=== PATIENT | male | born 1950 | race Caucasian/White ===

== ENCOUNTER 2021-04-22 13:05 | Outpatient (CLI) | payer MEDICARE, SELFPAY ==
--- NOTE | 2021-04-22 13:15 | ECG_ITS ---
Measurements Intervals [place] Rate: 62 P: 39 IA: 240 QRS: -37 QRSD: 104 T: 0 QT: 394 QTc: 400 Interpretive Statements SINUS RHYTHM WITH FIRST DEGREE AV BLOCK MARKED LEFT AXIS DEVIATION [QRS AXIS < -30] PATTERN CONSISTENT WITH PULMONARY DISEASE INCOMPLETE RIGHT BUNDLE BRANCH BLOCK [90+ ms QRS DURATION, TERMINAL R IN V1/V2, 40+ ms S IN I/aVL/V4/V5/V6] NO PREVIOUS ECG AVAILABLE FOR COMPARISON Electronically Signed On 04-22-2021 18:38:56 CDT by Anjelica Vázquez M.D.
[2021-04-22 14:23] LABS: Anion Gap 4 mmol/L (8-16); Blood Urea Nitrogen 17 mg/dL (9-20); Calcium 8.7 mg/dL (8.4-10.2); Carbon Dioxide 29 mmol/L (22-30); Chloride 101 mmol/L (98-107); Estimated Glomerular Filt Rate > 60; Glucose 206 mg/dL (65-110); Potassium 4.1 mmol/L (3.4-5.0); Sodium 134 mmol/L (137-145)
== END 2021-04-22 13:06 | disposition home or self-care (01) ==
PROVIDERS: Anesthesiology; PCP Internal Medicine; Visit Provider Otolaryngology
DX: Z01.818 Encounter for other preprocedural examination (principal); E78.5 Hyperlipidemia, unspecified; E11.9 Type 2 diabetes mellitus without complications; R94.31 Abnormal electrocardiogram [ECG] [EKG]; I45.19 Other right bundle-branch block
CPT/HCPCS: 36415; 80048; 93005

== ENCOUNTER 2021-04-25 00:23 | Day surgery (SDC) | payer MEDICARE, SELFPAY ==
[2021-04-18 12:46] VITALS: BMI 25.7
--- NOTE | 2021-04-18 12:51 | PC.NURSE ---
Report to the Outpatient Waiting Room, entrance under the green pavilion located off [facility], at time _0745 on date ___04/25/21____. OR Time: . - You and your visitor will be asked a series of questions to screen for COVID 19 for your protection. - A mask is required within the hospital. Preoperative COVID Testing Requirements: No COVID Test needed if: (proof is required; if not received patient will have Rapid Test prior to entry) - Patient has received COVID Vaccine at least 14 days prior to procedure date or - Patient has positive COVID test result within last 90 days of surgery date. COVID Test needed if above criteria is not met If not COVID vaccinated a COVID test must be conducted within 72 hours of surgery and patient is asked to isolate self from time of testing until procedure. You will go to the [facility] for your COVID testing. The [facility] site is located at the corner of [address] [facility]. You will only be called if COVID results are positive and your surgeon may reschedule your elective surgery date. Patients may have clear liquids (water, carbonated beverages, clear teas, apple juice) until 3 hours prior to surgery with a maximum of 20 ounces. - No food from midnight until time of surgery - Infants may have breast milk until 4 hours before surgery, formula 6 hours prior to surgery. - Children will be allowed to drink immediately following surgery. If applicable, please bring a bottle or sippy cup to assist with drinking. Juice, water, soda, and popsicles are readily available. For infants on formula, please bring formula the day of surgery. Pacifiers are allowed. Take the following medications with a SIP of water the morning of surgery: ____NONE Medications to discontinue per physician ____ALL VITAMINS AND SUPPLEMENTS 3 DAYS PRE OP Date to take last dose___04/21/21 Please no make-up, nail german, hairspray, perfume, deodorant, or body powder the day of surgery. No jewelry (including any body piercings) or valuables the day of surgery, leave them at home. Please take a shower or bath the night before, or the morning of, surgery with an antibacterial soap. Wear comfortable, loose fitting clothing. Children are encouraged to wear pajamas. - Jewelry must be removed prior to entering the operating room. Rings and piercings that are not removed may be cut off. - The hospital will not accept responsibility for valuables. - Please leave all valuables, including medications, at home the day of surgery. If you are going home after surgery, a licensed stage driver must drive you home. - NO public transportation without another adult. - We recommend that an adult stay with you for 24 hours following discharge. - We also recommend that you do not drive, make important decision, drink alcoholic beverages, or take any drugs that were not prescribed by your health care provider for at least 24 hours after your discharge time. For Pediatric surgeries, we recommend two adults accompany the child home (only one inside the building at this time). One visitor will be allowed to accompany the patient into the hospital. Patients visitor will be instructed to remain with patient at all times or leave the building. We will allow the visitor to come back to the postoperative area when patient is ready. Follow any additional instructions given to you from your surgeon. Telephone instructions given to PATIENT and asked if any additional questions and then verbalized understanding. Patient advised to call surgeon office or pre surgery nurse liaison [phone] if any additional questions.
--- NOTE | 2021-04-24 07:54 | PM.IMHP ---
H&P: HPI History of Present Illness Date/Time: 04/24/21 07:54 Chief Complaint: Left neck cyst Narrative: patient presents for planned surgical procedure no change in symptoms no change in history Review of Systems Constitutional: Constitutional: Denies fatigue, Denies fever(s) and Denies lethargy Eyes: Eyes: Denies blurry vision and Denies change in vision ENT: Reports as per HPI Cardiovascular: Cardiovascular: Denies chest pain Respiratory: Respiratory: Denies cough Endocrine: Endocrine: Denies fatigue Hematologic/Lymphatic: Hematologic/Lymphatic: Denies easy bleeding, Denies easy bruising and Denies lymphadenopathy Allergic/Immunologic: Allergic/Immunologic: Denies seasonal rhinorrhea [facility] Family History Family History Mother Cerebrovascular accident Father Patient's father is Acute myocardial infarction Social History Social History Smoking status: Never smoker Second hand tobacco smoke exposure: No Alcohol intake: current Drinks per week: 4 Substance use: never Spiritual care concerns: No Meds Home Medications and Allergies Home Medications Medication Instructions Recorded Confirmed Type sildenafil 50 mg tablet 50 mg PO DAILY PRN #12 tablet 02/13/20 04/18/21 Rx metformin 500 mg tablet 500 mg PO BID #180 tablet 11/22/20 04/18/21 Rx atorvastatin 10 mg tablet 10 mg PO DAILY #90 tablet 03/16/21 04/18/21 Rx diazepam 5 mg tablet 5 mg PO DAILY PRN #20 tablet 03/18/21 04/18/21 Rx Lacto.acidophilus-Bif.animalis 1 cap PO DAILY 04/18/21 04/18/21 History [Daily Probiotic] aspirin [Adult Low Dose Aspirin] 81 mg PO DAILY 04/18/21 04/18/21 History atovaquone-proguanil [Malarone] See Rx Instructions PO .COMPLEX PRN 04/18/21 04/18/21 History ciprofloxacin HCl [Ciloxan] 1 drp OPHTHALMIC (EYE) PRN PRN 04/18/21 04/18/21 History coenzyme [id number]-[id number] E [CoQ10 SG 1 cap PO DAILY 04/18/21 04/18/21 History 100] doxycycline hyclate 100 mg PO PRN PRN 04/18/21 04/18/21 History multivitamin,jp-gtxs-evokjpqq 1 tablet PO DAILY 04/18/21 04/18/21 History [Complete Multivitamin] turmeric 400 mg PO DAILY 04/18/21 04/18/21 History zolpidem 5 mg PO .hs PRN 04/18/21 04/18/21 History Allergies Allergy/AdvReac Type Severity Reaction Status Date / Time No Known Allergies Allergy Verified 04/18/21 12:24 Exam Const: General: cooperative, healthy appearing, comfortable, well developed and alert HENMT: Head: normal to inspection, normocephalic and atraumatic Ears: hearing grossly normal bilaterally, external ears normal, TM's normal bilaterally and EAC's normal General nose exam: Normal external nose present, Normal nares present, No nasal polyps present, Normal nasal mucous membranes and turbinates present and Normal septum present Face and sinus: normal facial exam Mouth: Yes Normal oral and palatal mucosa present, Yes lip normal, Yes tongue normal, Yes oropharynx normal and Yes moist mucous membranes Teeth and gingiva: dentition normal and gingiva normal Throat: posterior oropharynx normal, tonsils normal and uvula midline Eyes: General: appearance normal, both eyes and all related structures Periorbital: periorbital findings normal Eyelids: eyelids normal Conjunctivae: conjunctivae normal Sclera: sclerae normal Neck: Neck: not normal to visual inspection ( left neck cyst), full ROM and no lymphadenopathy Thyroid: thyroid normal Lymphatic: no lymphadenopathy noted Resp: Effort & Inspection: normal respiratory effort and able to speak in complete sentences Cardio: Jugular venous distension: no JVD Neuro: Cranial nerves: Yes CN's II-XII intact bilaterally Assessment and Plan Assessment and plan (1) Cyst of neck: Status: Acute Assessment and Plan: plan is for the operating room removal of left neck lesion/ cyst. Soft tissue / plastic straight h
[2021-04-25] VITALS (7 sets, daily range): BP systolic 124–153; BP diastolic 67–76; PULSE 51–58; RESP 12–16; TEMP 36.3; O2SAT 95–98
[2021-04-25] MEDS: LACTATED RINGERS 1,000 ML 30 ML IV CONT (07:15)
[2021-04-25 07:18] LABS: Glucose Point of Care 167 mg/dl (65-105)
--- NOTE | 2021-04-25 07:20 | WPDHPUPDATE1 ---
History and Physical Update Update Date/Time: 04/25/21 07:20 History and Physical has been reviewed, including an updated exam of the patient. There are NO changes in the patient's condition. Risks, benefits, and alternatives have been discussed and questions answered. Patient agrees to proceed with procedure.
--- NOTE | 2021-04-25 07:56 | WPDANESEPPF ---
Anes - Initial Pre Proc Eval Procedure: Operation Date: 04/25/21 08:30 Proposed Procedures p Excision Left Neck Mass - Yves Vazquez MD Date/Time: 04/25/21 07:56 Surgeon: Yves Vazquez MD Pre Op Diagnosis: left neck mass Patient Data Age: 70 Gender: M Height: 1.83 m Weight: 86.2 kg Allergies Allergy/AdvReac Type Severity Reaction Status Date / Time No Known Allergies Allergy Verified 04/25/21 07:30 Home Medications Medication Instructions Recorded Confirmed Type sildenafil 50 mg tablet 50 mg PO DAILY PRN #12 tablet 02/13/20 04/25/21 Rx metformin 500 mg tablet 500 mg PO BID #180 tablet 11/22/20 04/25/21 Rx atorvastatin 10 mg tablet 10 mg PO DAILY #90 tablet 03/16/21 04/25/21 Rx diazepam 5 mg tablet 5 mg PO DAILY PRN #20 tablet 03/18/21 04/25/21 Rx Lacto.acidophilus-Bif.animalis 1 cap PO DAILY 04/18/21 04/25/21 History [Daily Probiotic] aspirin [Adult Low Dose Aspirin] 81 mg PO DAILY 04/18/21 04/25/21 History atovaquone-proguanil [Malarone] See Rx Instructions PO .COMPLEX PRN 04/18/21 04/25/21 History ciprofloxacin HCl [Ciloxan] 1 drp OPHTHALMIC (EYE) PRN PRN 04/18/21 04/25/21 History coenzyme [id number] E [CoQ10 SG 1 cap PO DAILY 04/18/21 04/25/21 History 100] doxycycline hyclate 100 mg PO PRN PRN 04/18/21 04/25/21 History multivitamin,cn-zplc-wkfphxzr 1 tablet PO DAILY 04/18/21 04/25/21 History [Complete Multivitamin] turmeric 400 mg PO DAILY 04/18/21 04/25/21 History zolpidem 5 mg PO .hs PRN 04/18/21 04/25/21 History Laboratory Tests 04/25/21 07:14 POC Capillary Glucose 167 mg/dl H mg/dl (65-105) Patient hx anesthesia problems: none Family hx anesthesia problems: none Results Review: All pre-operative results and documents have been reviewed as part of the pre-operative evaluation. [facility] Family History Family History Mother Cerebrovascular accident Father Patient's father is Acute myocardial infarction Social History Social History Smoking status: Never smoker Second hand tobacco smoke exposure: No Alcohol intake: current Drinks per week: 4 Substance use: never Living arrangements: with family Spiritual care concerns: No Anes - Eval Final PreProcedure Day of Procedure 04/25/21 07:56 Patient weight: overweight Heart: regular rate and rhythm Lungs: clear to auscultation Airway: Mallampati scale class II Neurological: alert and oriented Last oral intake: >/= 8 hours ASA classification: II Emergent: no Anesthetic plan: proceed Anesthesia type and monitoring: general LMA and standard monitoring Results Review: All pre-operative results and documents have been reviewed as part of the pre-operative evaluation. Informed Consent: The patient's anesthetic plan and its attendant risks and benefits were discussed with the patient/family/POA. Questions were solicited and answers provided to the satisfaction of the patient/family/POA.
[2021-04-25] MEDS: ceFAZolin 2 GM/D5W 50 ML 2 GM/50 ML BAG IVPB (08:21)
--- NOTE | 2021-04-25 09:22 | W.PM.PROC2 ---
Procedure Note - Detailed Date of Procedure 04/25/21 Pre-op Diagnosis left neck mass Post-op Diagnosis Same Procedure Performed Excision of left neck mass posterior try approximately 3 cm Surgeon Yves Vazquez MD Anesthesia General (LMA) Indications See above Findings 3 x 2 cm neck mass consistent with lipoma, nerve stimulated, cranial nerve 11 left-sided stimulated via bipolar on subcutaneous tissue,, not on the nerve, following procedure Description of Procedure Patient identified consent verified. Patient brought operating time-out performed. General anesthesia induced LMA secured. Patient prepped and draped for procedure 2nd time-out performed. 4 cm incision drawn over relaxed skin tension line directly over lesion. 1 cc injected under pre drawn surgical incision 1% lidocaine 1 100,000 parts epinephrine. Fifteen blade utilized to cut through the skin and dermis. Dissection carried out with small curved scissors lesion consistent with lipoma any very small bleeders cauterized with bipolar electrocautery at a setting of 5 lesion removed off the fascial tissue. While bipolar ring some dermal tissue not near any nerves cranial nerve 11 on that side stimulated. The wound was then copiously irrigated with sterile normal saline. Three interrupted 4-0 Vicryl sutures were utilized in the deep tissue. The skin was perfectly aligned and skin glue was placed over the incision. Care the patient was turned over to Anesthesiology. There were no immediate complications. Patient taken to PACU. Total blood loss less than 1 cc. Estimated Blood Loss 1 Drains No Packing No Pathology Yes Complications No immediate complications Condition Stable Disposition PACU
[2021-04-25 09:23] LABS: Glucose Point of Care 189 mg/dl (65-105)
== END 2021-04-25 10:20 | disposition home or self-care (01) ==
PROVIDERS: PCP Internal Medicine; Visit Provider Otolaryngology
PROC: (CPT 21552; principal; 2021-04-25 08:30)
DX: R22.1 Localized swelling, mass and lump, neck (principal); D17.0 Benign lipomatous neoplasm of skin and subcutaneous tissue of head, face and neck; Z79.82 Long term (current) use of aspirin; Z79.84 Long term (current) use of oral hypoglycemic drugs
CPT/HCPCS: 21552; 82948; 88304; J0690; J1100; J1940; J2250; J2270; J2405; J2704; J7120

== ENCOUNTER 2022-10-07 08:11 | Outpatient (CLI) | payer MEDICARE, SELFPAY ==
--- NOTE | ~2022-10-07 | NM_ITS ---
EXAMINATION: NM toyin stress w perfusion DATE: 10/07/2022 10:21 INDICATION: Chest pain TECHNIQUE: Rest images were obtained following intravenous administration of 10.6 mCi Tc99m tetrofosm in (Myoview). The patient was infused intravenously with Lexiscan (Regadenoson). Then, 33.9 mCi Tc99m tetrofosmin (Myoview) was administered intravenously, and stress images were obtained in supine posi tion. Data was reconstructed into short axis and horizontal and vertical long axis SPECT images. [place] d SPECT images were also obtained. COMPARISON: None. FINDINGS: Apparent perfusion defect at the mid inferior and if clinically at the apical inferior and apical segments on the post stress imaging which could represent infarct but significantly more sever e and extensive perfusion defect on the rest images extending to the adjacent mid apical inferior and lateral inferior segments and the basilar inferior segment on the rest images suggesting this may be artifact of diaphragmatic attenuation. Prone imaging is no provided. No reversible perfusion defects to suggest ischemia. There is normal left ventricular chamber size, wall motion and ejection fractio n. Left ventricular ejection fraction measures 57%. IMPRESSION: 1. Possible small infarct at the mid inferior, apical inferior and apical segments. There is signific antly more extensive and severe decreased perfusion on the inferior wall on the rest images suggestin g is also be related to diaphragmatic attenuation artifact. No reversible ischemia. 2. Left ventricular ejection fraction measuring 57%. Reviewed, dictated and finalized at location A. IMPRESSION: 1. Possible small infarct at the mid inferior, apical inferior and apical segme nts. There is significantly more extensive and severe decreased perfusion on th e inferior wall on the rest images suggesting is also be related to diaphragmat ic attenuation artifact. No reversible ischemia. 2. Left ventricular ejection fraction measuring 57%.
--- NOTE | 2022-10-07 08:35 | EST_ITS ---
Patient Info Name: Alfonzo Rivera Age: 72 years : 1950 Gender: Male Ht: 71 in Wt: 185 lbs BSA: 2.06 m2 HR: 53 bpm BP: 121 / 83 mmHg Heart Rhythm: Sinus Rhythm Exam Date: 10/07/2022 9:05 AM Exam Location: [facility] Patient Status: Outpatient Admit Date: 10/07/2022 Staff Ordering Physician: Simeon Mccauley DO Attending Provider: Simeon Mccauley DO Exercise Technologist: Judith Barrios CT Exercise Physician: Qasim Barclay DO Exam Type: CA stress toyin w NM Study Info Indications R07.89 - Other chest pain A regadenoson stress test was performed. Summary 1. 1. Negative lexiscan stress test for ischemic ST changes by ECG criteria. 2. 2. Stable hemodynamics throughout the test. 3. 3. Nuclear scan to follow and will be reported separately. Please correlate with it. 4. 4. Patient informed of the above results. Protocol: Lexiscan Stress ECG Details Stage: REST Duration (min): 1 min : 9 sec HR (bpm): 54 SBP (mmHg): 121 DBP (mmHg): 83 Stage: REST Duration (min): 15 min : 13 sec HR (bpm): 53 SBP (mmHg): 121 DBP (mmHg): 83 Stage: STAGE 1 Duration (min): 1 min : 0 sec HR (bpm): 65 SBP (mmHg): 114 DBP (mmHg): 70 Stage: RECOVERY Duration (min): 1 min : 0 sec HR (bpm): 70 SBP (mmHg): 114 DBP (mmHg): 70 Stage: RECOVERY Duration (min): 2 min : 0 sec HR (bpm): 64 SBP (mmHg): 114 DBP (mmHg): 70 Stage: RECOVERY Duration (min): 3 min : 0 sec HR (bpm): 66 SBP (mmHg): 110 DBP (mmHg): 69 Stage: RECOVERY Duration (min): 3 min : 16 sec HR (bpm): 65 SBP (mmHg): 110 DBP (mmHg): 69 Rest HR: 53 bpm Peak HR: 72 bpm Rest Sys BP: 121 mmHg Peak Sys BP: 114 mmHg Max Pred HR: 149 bpm % Max Pred HR: 48 % Target HR: 127 bpm Max RPP: 8,208 bpm*mmHg Termination Reason: Completed protocol Cardiac Symptoms: Shortness of breath Total Time: 1 min : 0 sec Rest Pineda BP: 83 mmHg Peak Pineda BP: 70 mmHg Total Dose: 0.4 mg Resting ECG Sinus rhythm. Stress ECG No ST changes. Arrhythmias None. Report Signatures
== END 2022-10-07 08:12 | disposition home or self-care (01) ==
PROVIDERS: PCP Internal Medicine; Visit Provider Internal Medicine
DX: R07.9 Chest pain, unspecified (principal)
CPT/HCPCS: 78452; 93017; A9502; J2785

== ENCOUNTER 2022-12-24 00:26 | Day surgery (SDC) | payer MEDICARE, SELFPAY ==
[2022-12-10 11:37] VITALS: BMI 25.8
--- NOTE | 2022-12-22 10:30 | SUR.PREOP ---
Patient called regarding upcoming procedure. Reviewed preop instructions, appointment times, and procedure prep.
[2022-12-24 11:53] VITALS: BP 120/53; PULSE 53; RESP 16; TEMP 35.9; O2SAT 100
[2022-12-24] MEDS: LACTATED RINGERS 1,000 ML 150 ML IV CONT (12:05)
[2022-12-24 12:06] LABS: Glucose Point of Care 94 mg/dl (65-105)
--- NOTE | 2022-12-24 12:08 | PM.HPGS ---
History of Present Illness History of Present Illness Consent: Risks, benefits, and alternatives have been discussed and questions answered. Patient agrees to proceed with procedure. Chief complaint: Hx colon polyps Narrative: Alfonzo Rivera is a 72 year old male Presents for screening colonoscopy. Patient has a distant history colon polyps. His current weight appetite bowel movements are normal. Patient denies abdominal pain. He has had no bleeding. Family history noncontributory. Most recent colonoscopy 2018 was unremarkable. Review of Systems Review of Systems: Review of systems noncontributory. [facility] Family History Family History Mother Cerebrovascular accident Father Patient's father is Acute myocardial infarction Social History Social History Smoking status: Former smoker Tobacco type: cigarettes Second hand tobacco smoke exposure: No Alcohol intake: current Drinks per week: 4 Substance use: never Substance use type: does not use Lack of Transportation: No Lack of Food: Never True Current Housing: I Have Housing Concerned About Future Housing: No Difficulty Paying Gas/Electric Bills: No Difficulty Paying for Meds: No Currently Unemployed: No Education: Bachelor's Degree Difficulty w/ Childcare or Family Care: No Living arrangements: with family Spiritual care concerns: No Meds Home Medications and Allergies Home Medications Medication Instructions Recorded Confirmed Type Lactobacillus 1 cap PO DAILY 04/18/21 12/24/22 History acidophilus-Bifidobac.animalis 2.5 billion cell capsule (Daily Probiotic) aspirin 81 mg tablet 81 mg PO DAILY 04/18/21 12/24/22 History coenzyme K09-lyzkydm E 100 mg-100 1 cap PO DAILY 04/18/21 12/24/22 History unit capsule multivitamin,pp-mbvq-xqtmricb 1 tablet PO DAILY 04/18/21 12/24/22 History turmeric 400 mg capsule 400 mg PO DAILY 04/18/21 12/24/22 History sildenafil 50 mg tablet 50 mg PO DAILY PRN sexual activity 08/26/21 12/24/22 Rx #12 tabs doxycycline hyclate 100 mg capsule 100 mg PO PRN PRN INFECTION #15 03/17/22 12/24/22 Rx caps zolpidem 5 mg tablet 5 mg PO .hs PRN INSONMIA #30 tabs 08/31/22 12/24/22 Rx diazepam 5 mg tablet 5 mg PO DAILY PRN anxiety #20 tabs 09/17/22 12/24/22 Rx metformin 500 mg tablet 500 mg PO BID #180 tabs 11/12/22 12/24/22 Rx atovaquone 250 mg-proguanil 100 mg See Rx Instructions PO .COMPLEX 11/15/22 12/24/22 Rx tablet (Malarone) PRN INFECTION #18 tabs atorvastatin 10 mg tablet 10 mg PO DAILY #90 tabs 12/06/22 12/24/22 Rx Allergies Allergy/AdvReac Type Severity Reaction Status Date / Time No Known Allergies Allergy Verified 12/24/22 11:50 Vital Signs Vital Signs - 24 hr 12/24/22 11:53 Temperature 96.7 F L Pulse Rate 53 L Respiratory Rate 16 Blood Pressure 120/53 L Pulse Oximetry 100 Oxygen Delivery Room Air Exam Narrative: Physical exam reveals patient to be alert. Vital signs stable. HEENT exam is unremarkable. Patient is anicteric. Lungs are clear to auscultation and percussion. Heart is without murmur or extra sounds. Abdomen bowel sounds are present soft nontender with no organomegaly. Digital external rectal exam is normal. Assessment and Plan Assessment and plan (1) Encounter for screening colonoscopy: Code(s): Z12.11 - Encounter for screening for malignant neoplasm of colon Status: Acute Assessment and Plan: Patient presents today for screening colonoscopy. He has a very distant history of colon polyps. Further recommendations will be given after endoscopy.
[2022-12-24 12:33] VITALS: BP 86/47; PULSE 56; RESP 14; O2SAT 96
[2022-12-24 12:43] VITALS: BP 122/57; PULSE 58; RESP 18; O2SAT 99
[2022-12-24 12:53] VITALS: BP 115/52; PULSE 61; RESP 19; O2SAT 100
== END 2022-12-24 13:06 | disposition home or self-care (01) ==
PROVIDERS: PCP Internal Medicine; Visit Provider Internal Medicine Gastroenterology
PROC: 0DJD8ZZ Inspection of Lower Intestinal Tract, Via Natural or Artificial Opening Endoscopic (ICD-10-PCS; CPT 45378; principal; 2022-12-24 13:00)
DX: Z12.11 Encounter for screening for malignant neoplasm of colon (principal); K63.5 Polyp of colon; K64.8 Other hemorrhoids; K57.30 Diverticulosis of large intestine without perforation or abscess without bleeding; Z87.891 Personal history of nicotine dependence; F10.90 Alcohol use, unspecified, uncomplicated; Z79.82 Long term (current) use of aspirin; Z79.84 Long term (current) use of oral hypoglycemic drugs; Z79.899 Other long term (current) drug therapy
CPT/HCPCS: 45385; 82948; 88305; J2704; J7120

== ENCOUNTER 2024-08-16 21:14 | Emergency (ER) | payer MEDICARE, SELFPAY ==
--- NOTE | ~2024-08-16 | XR_ITS ---
XR chest 2V Ordering provider: Amparo Marshall MD History: 74 years Male with . cp WITH PALPATATIONS AND LEFT JAW PAIN . Comparison: None. FINDINGS: MEDIASTINUM: The cardiac silhouette is not enlarged. LUNGS: No infiltrates, effusions or pneumothorax. OTHER: No free air under the diaphragm. IMPRESSION: No acute cardiopulmonary pathology. Reviewed, dictated and finalized at location A.
--- OUTSIDE RECORDS SUMMARY | 2024-08-16 21:16 | XMS_ITS | Clinical Summary ---
Author Organization [facility] Address [address] [place] [address] Care Team Providers Care Prepress Stripper Name Role Phone Unavailable Primary Care Provider Unavailabl e Allergies No known active allergies Medications atorvastatin (LIPITOR) 10 mg tablet TAKE 1 TABLET BY MOUTH ONCE DAILY 08/10/2020 Active metFORMIN (GLUCOPHAGE) 500 mg tablet Take 500 mg by mouth 2 times daily with meals. Active Active Problems No known active problems Social History Tobacco Use Types Packs/Day Years Used Date Smoking Tobacco: Never Smokeless Tobacco: Never Sex and Gender Information Value Date Recorded Sex Assigned at Not on file Legal Sex Male 11:31 AM CDT Gender Identity Not on file Sexual Orientation Not on file Last Filed Vital Signs Vital Sign Reading Time Taken Comments Blood Pressure - - Pulse - - Temperature - - Respiratory Rate - - Oxygen Saturation - - Inhaled Oxygen Concentration - - Weight 86.2 kg (190 lb) 11/13/2020 3:06 PM CDT Height 182.9 cm (6') 11/13/2020 3:06 PM CDT Body Mass Index 25.77 11/13/2020 3:06 PM CDT Plan of Treatment Health Maintenance Due Date Last Done Comments DTAP/TDAP/TD VACCINES (1 - Tdap) 07/13/1970 COLORECTAL SCREENING 07/13/1996 Colorectal Cancer Screening 07/13/1996 FIT-DNA Q 3 years 07/13/1996 FIT/FOBT Q 1 year 07/13/1996 Flex Sig/CT Colonography Q 5 years 07/13/1996 PNEUMOCOCCAL VACCINE 50+ YEA RS (1 of 1 - PCV) 07/13/2001 ZOSTER VACCINE (1 of 2) 07/13/2001 INFLUENZA VACCINE (#1) 2024 11/11/2020, 2018 RSV VACCINE (60+ or ) (1 - 1-dose 75+ series) 07/13/2026 Insurance MEDICARE
--- OUTSIDE RECORDS SUMMARY | 2024-08-16 21:16 | XMS_ITS | Continuity of Care Document ---
Author Organization [facility] Address [address] [place] [address] [address] [place] [address] Phone Care Team Providers Care Wet Roller Name Role Phone Smith OD, Alberto Unavailable Unavailable Procedures Procedure Date Office/outpatient Visit, Est Office/outpatient Visit, New Advance Directives Directive Yes / No Effective Date File Name No Information Encounters Encounter Description Practice Location Reason(s) For Visit Diagnoses Date Provider Providers Copied on Encounter Office/outpat ient Visit, [facility], [address] [place] [address] [address], [place], [place], [id number], [place] tel:[phone] [facility] No Information 2-201 0 Smith OD Alberto. [address] , [address], [place], [place], [facility], [place]. tel:[phone] Office/outpat ient Visit, [facility], [address] [place] [address] [address], [place], [place], [id number], [place] tel:[phone] [facility] No Information 5-201 0 Smith OD Alberto. [address] , [address], [place], [address], [place]. tel:[phone] Referring Provider: Simeon Mccauley MD, [address] [place] [address] [address], [place], [address]. tel:[phone] Family History Family Member Type Diagnosis Age At Onset No Information Payers Payer name Insurance type Covered alliance party ID Authoriza tion(s) No Information Social History Type Description Quantity Date Captured Comments Sex Male Smoking Status No Information Chief Complaint And Reason For Visit No Information Reason For Referral Reason For Referral No Information History Of Present Illness Encounter Date Complaint History Of Prese nt Illness No Information Functional Status Date Functional Assessmen t No Information Instructions Date Instruction Additional Infor mation No Information Assessments Type Assessment Date No Information Patient Care Teams Name Effective Dates (start - stop) Status Members No Information
--- OUTSIDE RECORDS SUMMARY | 2024-08-16 21:16 | XMS_ITS | Clinical Summary ---
Author Organization [facility] Address [address] [facility] [place] [address] Care Team Providers Care Administrative Fellow Name Role Phone Garrick Simeon Morley DO Primary Care Provider [phone] Source Comments [facility],non-owned Affiliates and Associated Physician Practices is amultiple site organization consisting of ambulatory clinics and hospital sitesin [place], [place], [place] and [place]. This disclosure is being madepursuant to the Care Everywhere program and may not contain all information available regarding this patient. Last updated 17.[facility] Immunizations Immunization Administration Dates Next Due INFLUENZA VACCINE, ADJUVANTE D, QUADR. (FLUAD QUADRIVALENT; 65Y+) (AIIV4) 11/11/2020 INFLUENZA VACCINE, QUADR. 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 Gender Identity Not on file Sexual Orientation Not on file Plan of Treatment Health Maintenance Due Date Last Done Comments COLOGUARD (AGES 45-75) - COL ON CA SCREENING 1950 COLON MONITORING 1951 COLONOSCOPY - COLON CA SCREENING 1951 CT COLONOGRAPHY - COLON CA SCREENING 1950 Colorectal Cancer Screening 1950 FIT - COLON CA SCREENING 1951 FLEX SIG - COLON CA SCREENING 1951 LIPID TESTING 1950 MEDICARE AWV 12 MONTHS 1950 HEPATITIS C SCREENING 07/09/1969 DTAP/TDAP/TD VACCINES (1 - Tdap) 07/13/1970 PNEUMOCOCCAL VACCINE 50+ (1 of 1 - PCV) 07/13/2001 ZOSTER VACCINE (1 of 2) 07/13/2001 COVID-19 VACCINE (2 - 2023-2 5 season) 2023 04/16/2020 DEPRESSION SCREENING 02/09/2024 INFLUENZA VACCINE (#1) 2024 , 12/29/2019, 01/04/2019 Respiratory Syncytial Virus (RSV) Vaccine Pt: or over 60 yrs (1 - 1-dose 75+ series) 07/13/2026 HEPATITIS B VACCINE Aged Out No longe r eligible based on patient's age to complete this topic HIB VACCINE Aged Out No longer eligi ble based on patient's age to complete this topic HPV VACCINE Aged Out No longer eligi ble based on patient's age to complete this topic MENINGOCOCCAL (Group B) VACCINE SHARED DECISION-MAKING Aged Out No longer eligible based on patient's age to complete this topic MENINGOCOCCAL GROUPS A/C/Y/W VACCINE Aged Out No longer eligible b ased on patient's age to complete this topic Insurance MEDICARE MEDICARE MEDICARE MEDICARE Care Teams Administrative Fellow Relationship Specialty Start Date End Date Simeon Mccauley DO [address] [facility] [address] [place], [place] [id number] PCP - General Internal Medicine 11/11/20
--- OUTSIDE RECORDS SUMMARY | 2024-08-16 21:16 | XMS_ITS | Referral Summary ---
Author Organization [facility] [address] Address [address] [place] [address] Care Team Providers Care Tenterer Name Role Phone Veto Shields Primary Care Provider Allergies No known active allergies Medications atorvastatin (LIPITOR) 10 mg tablet Take 1 tablet (10 mg total) by mouth daily Active metFORMIN (GLUCOPHAGE) 500 mg tablet Take 1 tablet (500 mg total) by mouth 2 (two) times a day Active aspirin 81 mg enteric coated tablet Take 1 tablet (81 mg total) by mouth daily Active Active Problems Problem Noted Date Diagnosed Date Coronary artery calcification 12/07/2022 Hyperlipidemia associated with type 2 diabetes belén gotti 10/19/2022 Resolved Problems Problem Noted Date Diagnosed Date Resolved Date Abnormal stress ECG 10/19/2022 12/13/19 24 Social History Tobacco Use Types Packs/Day Years Used Date Smoking Tobacco: Never Smokeless Tobacco: Never Personal Safety Answer Date Recorded Have you ever been in or are you currently in a harmful physical or emotional relationship or is someone making you feel afraid or unsafe? Denies 11/13/2022 Sex and Gender Information Value Date Recorded Sex Assigned at Not on file Legal Sex Male 8:31 PM MINUTE CLERK Gender Identity Not on file Sexual Orientation Not on file Last Filed Vital Signs Vital Sign Reading Time Taken Comments Blood Pressure 96/58 12/13/2023 12:54 PM MINUTE CLERK Pulse 68 12/13/2023 12:54 PM MINUTE CLERK Temperature - - Respiratory Rate 10 11/13/2022 8:35 AM CDT Oxygen Saturation 99% 12/13/2023 12:54 PM MINUTE CLERK Inhaled Oxygen Concentration - - Weight 81.8 kg (180 lb 6.4 oz) 12/13/2023 12:54 PM MINUTE CLERK Height 180.3 cm (5' 11) 12/13/2023 12:54 PM MINUTE CLERK Body Mass Index 25.16 12/13/2023 12:54 PM MINUTE CLERK Plan of Treatment Not on file Procedures Procedure Name Priority Date/Time Associated Diagnosis Comments POCT LIPID PANEL Routine 12/13/2023 3:21 PM MINUTE CLERK Hyperlipidemia associated with type 2 diabetes mellitus (HCC) from Last 3 Months or Most Recently Relevant to Health Maintenance Results * POCT lipid panel (12/13/2023 3:21 PM MINUTE CLERK) Cholesterol, POC 153 mg/dL Comment:GLU = 104 HDL, POC 29 mg/dL Triglycerides, POC 185 mg/dL LDL Cholesterol POC 87 mg/dL Chol/HDL Ratio, POC 3.0 Non-HDL Cholesterol, POC 124 mg/dL Cholesterol Total, POC 153 mg/dL Capillary blood 12/13/2023 3 :21 PM MINUTE CLERK us Vik Ochoa MD POINT OF CARE TEST O RDERABLES Final Result from Last 3 Months or Most Recently Relevant to Health Maintenance Insurance MEDICARE [facility] MEDICARE [facility]IC[facility] Care Teams Tenterer Relationship Specialty Start Date End Date Veto Shields DO [address] [facility] [address] [place], [place] [id number] PCP - General Internal Medicine 12/13/23
--- OUTSIDE RECORDS SUMMARY | 2024-08-16 21:16 | XMS_ITS | Clinical Summary ---
Author Organization [facility] [address] Address [address] [place] [address] Care Team Providers Care Dimensional Engineer Name Role Phone Veto Shields DO Primary Care Provider [phone] Allergies No known active allergies Medications atorvastatin [...] 12/07/2022 Hyperlipidemia associated with type 2 diabetes m ellitus 10/19/2022 Resolved Problems Problem Noted Date Diagnosed Date Resolved Date Abnormal stress ECG 10/19/2022 12/13/19 24 Medical History Medical History Date Comments Diabetes mellitus (HCC) Hyperlipidemia Family History Medical History Relation Name Comments Hyperlipidemia Brother Heart attack Father Hyperlipidemia Father Hyperlipidemia Mother Stroke Mother Hyperlipidemia Sister Relation Name Status Comments Brother Father Mother Sister Social History Tobacco Use Types Packs/Day Years [...] on file Legal Sex Male 8: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 CONSULTANT Gender Identity Not on file Sexual Orientation Not on file Obstetrics History Last Filed Vital Signs Vital Sign Reading Time Taken Comments Blood Pressure 96/58 12/13/2023 12:54 PM BIOMETRICS CONSULTANT Pulse 68 12/13/2023 12:54 PM BIOMETRICS CONSULTANT Temperature - - Respiratory Rate 10 11/13/2022 8:35 AM CDT Oxygen Saturation 99% 12/13/2023 12:54 PM BIOMETRICS CONSULTANT Inhaled Oxygen Concentration - - Weight 81.8 kg (180 lb 6.4 oz) 12/13/2023 12:54 PM BIOMETRICS CONSULTANT Height 180.3 cm (5' 11) 12/13/2023 12:54 PM BIOMETRICS CONSULTANT Body Mass Index 25.16 12/13/2023 12:54 PM BIOMETRICS CONSULTANT Plan of Treatment Health Maintenance Due Date Last Done Comments Albumin Creatinine Ratio, Urine 1951 Colon Cancer Screening-Colonoscopy 1951 Depression Screening 1950 Hemoglobin A1C 1951 Hepatitis C Screening 1950 eGFR 1950 Dilated Eye Exam 1951 Foot Exam 1950 Hepatitis B Screening 07/13/1969 Pneumococcal vaccine 65+ (1 of 2 - PCV) 07/13/1970 DTaP/Tdap/Td Vaccine (1 - Tdap) 01/21/2005 5 Well Visit 65+ 07/13/2016 Covid-19 Vaccine (2 - 2023-2 5 season) 2023 04/16/2020 Fall Risk Assessment 11/14/2023 11/13/2022 Influenza Vaccine (Season Ended) 2024 11/24/2021, 11/11/2020, 12/29/2019, Additional history exists Lipid Panel 12/12/2024 12/13/2023, 10/19/2022 Zoster Vaccine Completed 05/21/2021, 12/26/2020 Procedures Procedure Name Priority Date/Time Associated Diagnosis Comments POCT LIPID PANEL Routine 12/13/2023 3:21 PM BIOMETRICS CONSULTANT Hyperlipidemia associated with type 2 diabetes mellitus (HCC) from Last 3 Months or Most Recently Relevant to Health Maintenance Results * POCT lipid panel (12/13/2023 3:21 PM BIOMETRICS CONSULTANT) Cholesterol, POC 153 mg/dL Comment:GLU = 104 HDL, POC 29 mg/dL Triglycerides, POC 185 mg/dL LDL Cholesterol POC 87 mg/dL Chol/HDL Ratio, POC 3.0 Non-HDL Cholesterol, POC 124 mg/dL Cholesterol Total, POC 153 mg/dL Capillary blood 12/13/2023 3 :21 PM BIOMETRICS CONSULTANT Vik Ochoa MD POINT OF CARE TEST O RDERABLES Final Result from Last 3 Months or Most Recently Relevant to Health Maintenance Insurance MEDICARE [facility] FINANCIAL MEDICARE AARP [facility]IC[facility] Care Teams Dimensional Engineer Relationship Specialty Start Date End Date Veto Shields DO [address] [facility] [address] [place], [place] [id number] PCP - General Internal Medicine 12/13/23
[2024-08-16 21:30] VITALS: BP 124/67; PULSE 57; RESP 17; TEMP 36.1; O2SAT 99
--- NOTE | 2024-08-16 21:30 | ECG_ITS ---
Test Date: 2024-08-16 21:34:55 Measurements Intervals [place] Rate: 54 P: 56 MD: 252 QRS: -36 QRSD: 105 T: 7 QT: 391 QTc: 371 Interpretive Statements SINUS BRADYCARDIA WITH FIRST DEGREE AV BLOCK INFERIOR INFARCT, AGE INDETERMINATE No previous ECG available for comparison Electronically Signed On 08-17-2024 11:48:42 CDT by Donovan Tidwell M.D.
[2024-08-16 21:49] LABS: Hematocrit 42.0 % (42.0-52.0); Hemoglobin 14.4 g/dL (14.0-18.0); Immature Granulocyte Percent A 0.2 % (0-0.5); Lymphocytes Absolute Auto 2.30 K/mm3 (0.9-3.2); Mean Corpuscular HGB Conc 34.3 g/dl (32-36); Mean Corpuscular Hemoglobin 31.9 pg (26-34); Mean Corpuscular Volume 92.9 fl (80-100); Nucleated Red Blood Cells Absolute Auto 0.000 K/mm3 (0.0-0.012); Nucleated Red Blood Cells Perc 0.0 % (0.0-0.2); Platelet Count Result 222 k/mm3 (150-375); Red Blood Count 4.52 M/mm3 (4.6-6.20); White Blood Count 5.6 K/mm3 (4.5-10.0)
[2024-08-16 21:58] LABS: Alanine Aminotransferase 23 U/L (6-50); Albumin Level 4.3 g/dL (3.5-5.1); Alkaline Phosphatase 71 U/L (38-126); Anion Gap 9 mmol/L (4-12); Aspartate Amino Transferase 31 U/L (17-59); Bilirubin,Total 0.4 mg/dL (0.2-1.3); Blood Urea Nitrogen 27 mg/dL (9-20); Calcium 9.9 mg/dL (8.4-10.2); Carbon Dioxide 21 mmol/L (22-30); Chloride 106 mmol/L (98-107); Estimated CRCL calculation 68 ml/min; Estimated Glomerular Filt Rate > 60; Glucose 98 mg/dL (65-110); Lipase 122 U/L (23-300); Potassium 4.1 mmol/L (3.4-5.0); Sodium 136 mmol/L (137-145); Total Protein 7.2 g/dL (6.3-8.2)
[2024-08-16 22:00] LABS: INR 1.0; Prothrombin Time 12.9 Seconds (11.1-14.7)
[2024-08-16 22:01] LABS: Partial Thromboplastin Time 30.8 Seconds (22.3-36.8)
[2024-08-16 22:10] LABS: Troponin I < 0.012 ng/mL (0.000-0.034)
[2024-08-16 22:20] VITALS: O2SAT 96
--- NOTE | 2024-08-16 22:46 | PC.NURSE ---
Pt presents to ED c/o chest pain with intermittent palpitations , onset 48hrs ago. Pt denies SOB, N/V at this time states pain has subsided. Pt placed on engine monitor and cont. pulse oxymeter.
--- OUTSIDE RECORDS SUMMARY | 2024-08-16 23:04 | XMS_ITS | Continuity of Care Document ---
Author Organization [facility] Address [address] [place] [address] [address] [place] [address] Phone Care Team Providers Care Dynamics Ax Technical Architect Name Role Phone Smith OD, Alberto Unavailable Unavailable Procedures Procedure Date Office/outpatient Visit, Est Office/outpatient Visit, New Advance Directives Directive Yes / No Effective Date File Name No Information Encounters Encounter Description Practice Location Reason(s) For Visit Diagnoses Date Provider Providers Copied on Encounter Office/outpat ient Visit, Est [facility], [address] [place] [address] [address], [place], [place], [id number], [place] tel:[phone] [facility] No Information 2-201 0 Smith OD Alberto. [address], [place], [place], [facility], [place]. tel:[phone] Office/outpat ient Visit, [facility], [address] [place] [address] [address], [place], [place], [address], [place] tel:[phone] [facility] No Information 5-201 0 Smith OD Alberto. [address] , [address], [place], [address], [place]. tel:[phone] Referring Provider: Simeon Mccauley MD, [address] [place] [address] [address], [place], [address]. tel:[phone] Family History Family Member Type Diagnosis Age At Onset No Information Payers Payer name Insurance type Covered democrat ID Authoriza tion(s) No Information Social History [...]
--- OUTSIDE RECORDS SUMMARY | 2024-08-16 23:04 | XMS_ITS | Clinical Summary ---
Author Organization [facility] [address] Address [address] [place] [address] Care Team Providers Care Asset Protection Lead Name Role Phone Veto Shields DO Primary Care Provider [phone] Allergies No known active allergies Medications atorvastatin [...] on file Legal Sex Male 8:31 PM LEATHER LACER Gender Identity Not on file Sexual Orientation Not on file Obstetrics History Last Filed Vital Signs Vital Sign Reading Time Taken Comments Blood Pressure 96/58 12/13/2023 12:54 PM LEATHER LACER Pulse 68 12/13/2023 12:54 PM LEATHER LACER Temperature - - Respiratory Rate 10 11/13/2022 8:35 AM CDT Oxygen Saturation 99% 12/13/2023 12:54 PM LEATHER LACER Inhaled Oxygen Concentration - - Weight 81.8 kg (180 lb 6.4 oz) 12/13/2023 12:54 PM LEATHER LACER Height 180.3 cm (5' 11) 12/13/2023 12:54 PM LEATHER LACER Body Mass Index 25.16 12/13/2023 12:54 PM LEATHER LACER Plan of Treatment Health Maintenance Due Date [...] POCT LIPID PANEL Routine 12/13/2023 3:21 PM LEATHER LACER Hyperlipidemia associated with type 2 diabetes mellitus (HCC) from Last 3 Months or Most Recently Relevant to Health Maintenance Results * POCT lipid panel (12/13/2023 3:21 PM LEATHER LACER) Cholesterol, POC 153 mg/dL Comment:GLU = 104 HDL, POC 29 mg/dL Triglycerides, POC 185 mg/dL LDL Cholesterol POC 87 mg/dL Chol/HDL Ratio, POC 3.0 Non-HDL Cholesterol, POC 124 mg/dL Cholesterol Total, POC 153 mg/dL Capillary blood 12/13/2023 3 :21 PM LEATHER LACER Vik Ochoa MD POINT OF CARE TEST O RDERABLES Final Result from Last 3 Months or Most Recently Relevant to Health Maintenance [place] [address] [facility] FINANCIAL MEDICARE AARP MEDICARE [facility] FINANCIAL Care Teams Asset Protection Lead Relationship Specialty Start Date End Date Veto Shields DO [address] [facility] 21 [place], [place] [id number] PCP - General Internal Medicine 12/13/23
--- OUTSIDE RECORDS SUMMARY | 2024-08-16 23:04 | XMS_ITS | Clinical Summary ---
Author Organization [facility] Address [address] [place] [address] Care Team Providers Care Cutting Machine Offbearer Name Role Phone Unavailable Primary Care Provider [...]
--- OUTSIDE RECORDS SUMMARY | 2024-08-16 23:05 | XMS_ITS | Clinical Summary ---
Author Organization [facility] Address [address] [place] [address] Care Team Providers Care Pot Runner Name Role Phone Garrick Simeon Morley DO Primary Care Provider [phone] Source Comments [facility],non-owned Affiliates and Associated Physician Practices is amultiple site organization consisting of ambulatory clinics and hospital sitesin [place], [place]. This disclosure is being madepursuant to the Care Everywhere program and may not contain all information available regarding this patient. Last updated 17.[facility] Immunizations Immunization Administration Dates Next Due INFLUENZA VACCINE, ADJUVANTE D, QUADR. (FLUAD QUADRIVALENT; 65Y+) (AIIV4) 11/11/2020 INFLUENZA VACCINE, QUADR. (F LUZONE; FLULAVAL; FLUARIX; AFLURIA QUADRIVALENT; 6MO+), 0.5 ML (IIV4) 01/04/2019 Social History Tobacco Use Types Packs/Day Years Used Date Smoking Tobacco: Never Assessed Sex and Gender Information Value Date Recorded Sex Assigned at Not on file Legal Sex Male 9:24 AM PATIENT CARE Gender Identity Not on file Sexual Orientation [...] Insurance MEDICARE MEDICARE MEDICARE MEDICARE Care Teams Pot Runner Relationship Specialty Start Date End Date Simeon Mccauley DO [address] [facility] [address] [place], [place] [id number] PCP - General Internal Medicine 11/11/20
--- OUTSIDE RECORDS SUMMARY | 2024-08-16 23:05 | XMS_ITS | Referral Summary ---
Author Organization [facility] [address] Address [address] [place] [address] Care Team Providers Care Sales Audit Clerk Name Role Phone Veto Shields Primary Care Provider [phone] Allergies No known active allergies Medications atorvastatin [...] on file Legal Sex Male 8:31 PM FRUIT INSPECTOR Gender Identity Not on file Sexual Orientation Not on file Last Filed Vital Signs Vital Sign Reading Time Taken Comments Blood Pressure 96/58 12/13/2023 12:54 PM FRUIT INSPECTOR Pulse 68 12/13/2023 12:54 PM FRUIT INSPECTOR Temperature - - Respiratory Rate 10 11/13/2022 8:35 AM CDT Oxygen Saturation 99% 12/13/2023 12:54 PM FRUIT INSPECTOR Inhaled Oxygen Concentration - - Weight 81.8 kg (180 lb 6.4 oz) 12/13/2023 12:54 PM FRUIT INSPECTOR Height 180.3 cm (5' 11) 12/13/2023 12:54 PM FRUIT INSPECTOR Body Mass Index 25.16 12/13/2023 12:54 PM FRUIT INSPECTOR Plan of Treatment Not on file Procedures Procedure Name Priority Date/Time Associated Diagnosis Comments POCT LIPID PANEL Routine 12/13/2023 3:21 PM FRUIT INSPECTOR Hyperlipidemia associated with type 2 diabetes mellitus (HCC) from Last 3 Months or Most Recently Relevant to Health Maintenance Results * POCT lipid panel (12/13/2023 3:21 PM FRUIT INSPECTOR) Cholesterol, POC 153 mg/dL Comment:GLU = 104 HDL, POC 29 mg/dL Triglycerides, POC 185 mg/dL LDL Cholesterol POC 87 mg/dL Chol/HDL Ratio, POC 3.0 Non-HDL Cholesterol, POC 124 mg/dL Cholesterol Total, POC 153 mg/dL Capillary blood 12/13/2023 3 :21 PM FRUIT INSPECTOR us Vik Ochoa MD POINT OF CARE TEST O RDERABLES Final Result from Last 3 Months or Most Recently Relevant to Health Maintenance Insurance MEDICARE [facility] MEDICARE [facility] MEDIC[facility] Care Teams Sales Audit Clerk Relationship Specialty Start Date End Date Veto Shields DO [address] [facility] 21 [place], [place] [phone] PCP - General Internal Medicine 12/13/23
--- NOTE | 2024-08-16 23:35 | ED.CHESTPAIN ---
HPI - Chest Pain General Chief Complaint: Chest Pain Stated Complaint: cp Time Seen by Provider: 08/16/24 22:52 History of Present Illness HPI narrative: Patient is a 74-year-old male who presents to the emergency department this evening complaining of heart palpitations since Wednesday. Patient states that on Wednesday he did fast and he was drinking salt water all day. States that Wednesday night his alarm was going off a lot because his blood glucose level was persistently in the 50s due to his fast. Starting on Wednesday patient started to feel palpitations and for the past 48 hours he has been having intermittent palpitations. Denies any active chest pain, any chest heaviness or sharp stabbing pain. Denies any history of cardiovascular disease but states that he did follow-up with a plating and point assembly supervisor through [facility] at 1 point and he had a stress test which was normal but they wanted to do additional testing including an MRI and they told him that he may have had a silent heart attack at 1 point but that all of his coronary arteries are patent and there was no damage to his heart. His plating and point assembly supervisor told him that he is healthy and he does not need to see him again for any additional appointments. Patient states that he exercises regularly and is fairly active. Denies any additional symptoms or concerns. Related Data Home Medications ?Medication ?Instructions ?Recorded ?Confirmed ?Last Taken ?Type Lactobacillus 1 cap PO DAILY 04/18/21 09/22/23 12/23/22 History acidophilus-Bifidobac.animalis 2.5 billion cell capsule (Daily Probiotic) aspirin 81 mg tablet 81 mg PO DAILY 04/18/21 09/22/23 12/23/22 History coenzyme [id number] E 100 mg-100 1 cap PO DAILY 04/18/21 09/22/23 12/23/22 History unit capsule multivitamin,[id number]-[id number] 1 tablet PO DAILY 04/18/21 09/22/23 12/23/22 History turmeric 400 mg capsule 400 mg PO DAILY 04/18/21 09/22/23 12/23/22 History Allergies Allergy/AdvReac Type Severity Reaction Status Date / Time No Known Allergies Allergy Verified 03/22/24 09:16 Review of Systems Review of Systems: All systems are reviewed and are negative unless stated otherwise in the HPI. [facility] Family History Family History Mother Cerebrovascular accident Father Patient's father is Acute myocardial infarction Social History Social History Smoking status: Former smoker Tobacco type: cigarettes Second hand tobacco smoke exposure: No Alcohol intake: current Drinks per week: 4 Substance use: never Substance use type: does not use Lack of Transportation: No Lack of Food: Never True Current Housing: I Have Housing Concerned About Future Housing: No Difficulty Paying Gas/Electric Bills: No Difficulty Paying for Meds: No Currently Unemployed: No Education: Bachelor's Degree Difficulty w/ Childcare or Family Care: No Living arrangements: with family Spiritual care concerns: No Exam Narrative: General: Alert, awake, afebrile, in no acute distress. HEENT: PERRL, no rhinorrhea, no post nasal drip, oropharynx clear. Neck: Trachea midline, no JVD, no lymphadenopathy. Cardiovascular: Bradycardic with regular rhythm, no murmurs, rubs or gallops, no peripheral edema. Respiratory: Clear to auscultation bilaterally, no tachypnea, no wheezing, no rhonchi, no rubs, no respiratory distress. Abdomen: Soft, nontender, nondistended, no rebound, no guarding, no peritoneal signs. Musculoskeletal: No joint swelling or deformity, normal muscle tone. Skin: No rashes or petechia, no signs of infection. Psychiatric: Alert and oriented, normal behavior and judgment for situation. Neurological: Alert and oriented to person, place, and time. Follows all commands. No focal deficits, speech is clear and fluent. Course Vital Signs Vital signs: Vital Signs Temperature 97.0 F L 08/16/24 21:30 Pulse Rate 57 L 08/16/24 21:30 Respiratory Rate 17 08/16/24 21:30 Blood Pressure 124/67 08/16/24 21:30 Pulse Oximetry 99 08/16/24 21:30 Oxygen Delivery Room Air 08/16/24 21:30 Temperature 97.0 F L 08/16/24 21:30 Pulse Rate 57 L 08/16/24 21:30 Respiratory Rate 17 08/16/24 21:30 Blood Pressure 124/67 08/16/24 21:30 Pulse Oximetry 96 08/16/24 22:20 Oxygen Delivery Room Air 08/16/24 21:30 MDM - Chest Pain MDM Narrative Medical decision making narrative: The patient was evaluated by myself in the emergency department. History is obtained from patient who is an independent historian and physical exam was performed. External medical records were reviewed at this time. IV was established and pertinent tests were ordered. EKG was obtained which revealed sinus bradycardia rate of 54 beats per minute, no evidence of arrhythmia, heart block or acute ischemia. EKG was independently interpreted by me and is currently pending official cardiology read. Laboratory results obtained revealing no acute process. Imaging studies obtained included CXR which was independently interpreted by me revealing no acute process, which is pending final radiology interpretation. Differential diagnosis considerations include dehydration, electrolyte derangements, acute viral syndrome, heart block. Comorbidities impacting this visit include none p.m. I have evaluated and discussed social determinants of health with the patient that could potentially impact subsequent diagnosis and treatment plans. On repeat assessment of the patient, reevaluation revealed that the patient is doing well and is in no acute distress. Patient symptoms have improved since he arrived to our emergency department. Repeat vital signs were all reviewed and noted to be stable. Differential diagnosis and treatment plan were discussed with the patient at bedside. Patient agrees with discussion and after shared medical decision making agrees with discharge. All questions were answered to the patient's satisfaction. Patient will follow up with his plating and point assembly supervisor in 3-5 days. Patient instructed to decrease his caffeine intake and increase his water intake for the next few days as this could help with his symptoms. Patient was provided with strict return precautions and instructed to return to the emergency department if any new or worsening symptoms develop. The patient was discharged in stable condition. Lab Data 08/16/24 21:42 08/16/24 21:42 Labs: Lab Results 08/16/24 Range/Units 21:42 WBC 5.6 (4.5-10.0) K/mm3 RBC 4.52 L (4.6-6.20) M/mm3 Hgb 14.4 (14.0-18.0) g/dL Hct 42.0 (42.0-52.0) % MCV 92.9 (80-100) fl MCH 31.9 (26-34) pg MCHC 34.3 (32-36) g/dl RDW 12.5 (11.5-14.5) % Plt Count 222 (150-375) k/mm3 MPV 8.5 (7.4-10.4) fl Immature Gran % (Auto) 0.2 (0-0.5) % Neut % (Auto) 43.3 L (45.5-73.1) % Lymph % (Auto) 40.9 (18.3-44.2) % [place] % (Auto) 8.5 (2.6-8.5) % Eos % (Auto) 5.9 H (0-4.4) % Baso % (Auto) 1.2 (0.2-1.2) % Lymph # (Auto) 2.30 (0.9-3.2) K/mm3 [place] # (Auto) 0.5 (0.1-0.6) K/mm3 Eos # (Auto) 0.3 (0-0.3) K/mm3 Baso # (Auto) 0.1 (0.0-0.1) K/mm3 Abs Immat Gran (auto) 0.01 (0.00-0.031) K/mm3 Absolute Neuts (auto) 2.4 (1.3-6.7) K/mm3 Absolute Nucleated RBC 0.000 (0.0-0.012) K/mm3 Nucleated RBC % 0.0 (0.0-0.2) % PT 12.9 (11.1-14.7) Seconds INR 1.0 APTT 30.8 (22.3-36.8) Seconds Sodium 136 L (137-145) mmol/L Potassium 4.1 (3.4-5.0) mmol/L Chloride 106 (98-107) mmol/L Carbon Dioxide 21 L (22-30) mmol/L Anion Gap 9 (4-12) mmol/L BUN 27 H D (9-20) mg/dL Creatinine 0.90 (0.7-1.3) mg/dL Estim Creat Clear Calc 68 ml/min Estimated GFR > 60 (59 - ) Glucose 98 (65-110) mg/dL Calcium 9.9 (8.4-10.2) mg/dL Magnesium 2.0 (1.6-2.3) mg/dL Total Bilirubin 0.4 (0.2-1.3) mg/dL AST 31 (17-59) U/L ALT 23 (6-50) U/L Alkaline Phosphatase 71 (38-126) U/L Troponin I < 0.012 (0.000-0.034) ng/mL Total Protein 7.2 (6.3-8.2) g/dL Albumin 4.3 (3.5-5.1) g/dL Lipase 122 (23-300) U/L Discharge Plan Discharge Clinical Impression: Heart palpitations Patient Disposition: Home Condition: Improved Instructions: Antibiotic Form, Heart Palpitations (ED) Additional Instructions: Please follow-up with your plating and point assembly supervisor within the next 3-5 days. Return to the emergency department if any new or worsening symptoms develop. Patient Language: Spanish Prescriptions: No Action atorvastatin 20 mg tablet 20 mg PO DAILY Qty: 90 3RF aspirin 81 mg Tablet 81 mg PO DAILY multivitamin,rq-[id number]-[id number] Tablet 1 tablet PO DAILY Daily Probiotic 2.5 billion cell Capsule 1 cap PO DAILY coenzyme [id number] E 100-100 mg-unit Capsule 1 cap PO DAILY turmeric 400 mg Capsule 400 mg PO DAILY sildenafil 50 mg tablet 50 mg PO DAILY PRN (Reason: sexual activity) Qty: 12 11RF Rx Instructions: administer 30 minutes to 4 hours before activity doxycycline hyclate 100 mg capsule 100 mg PO PRN PRN (Reason: INFECTION) Qty: 15 0RF Patient Comments: WHEN HE TRAVELS TO [facility] ciprofloxacin HCl 0.3 % drops 1 drp ophthalmic (eye) Q4H Qty: 2.5 0RF Rx Instructions: affected eye---- while awake (DME) FreeStyle Matthew 3 Plus Sensor Device See Rx Instructions .Route Qty: 1 4RF Rx Instructions: As directed zolpidem 5 mg tablet 5 mg PO .hs PRN (Reason: INSONM[place]) Qty: 30 0RF metformin 500 mg tablet 500 mg PO BID Qty: 180 3RF diazepam 5 mg tablet 5 mg PO DAILY PRN (Reason: anxiety) Qty: 20 0RF atovaquone-proguanil [Malarone] 250-100 mg tablet See Rx Instructions PO .COMPLEX PRN (Reason: INFECTION) Qty: 18 0RF Patient Comments: WHEN HE TRAVELS TO [place] Rx Instructions: take 1 tab once daily x 2days before exposure, during time in area, and x 7 days after leaving area, PO (DME) FreeStyle Matthew 3 Sensor Device See Rx Instructions .Route Qty: 1 6RF Rx Instructions: As directed (DME) LamontStyle Matthew 3 Renick Misc See Rx Instructions .Route Qty: 1 0RF Rx Instructions: As directed Follow-up/Referrals: Veto Shields DO [Primary Care Provider] - 3 Days Time of Disposition: 23:39
[2024-08-16 23:54] LABS: Magnesium 2.0 mg/dL (1.6-2.3)
[2024-08-17 00:51] VITALS: BP 121/70; PULSE 55; RESP 16; O2SAT 97
== END 2024-08-17 00:59 | disposition home or self-care (01) ==
PROVIDERS: Emergency Provider Emergency Medicine; PCP Internal Medicine
DX: R00.2 Palpitations (principal); R00.1 Bradycardia, unspecified
CPT/HCPCS: 36415; 71046; 80053; 83690; 83735; 84484; 85025; 85610; 85730; 93005; 99284